=== PATIENT | female | born 1930 | race Caucasian/White ===

== ENCOUNTER → 2016-12-06 | Outpatient (CLI) | payer MEDICARE, BC | END | disposition home or self-care (01) | LOC: HKI 10:59 | PROVIDERS: ATTEND Orthopaedic Surgery | DX: Z01.818 Encounter for other preprocedural examination (principal); M25.552 Pain in left hip; M16.12 Unilateral primary osteoarthritis, left hip; Z96.641 Presence of right artificial hip joint | CPT/HCPCS: G0463 ==

== ENCOUNTER 2016-12-21 05:14 | Inpatient (IN) | payer MEDICARE, BC ==
[2016-12-20 09:22] VITALS: BMI 22.0
[~2016-12-21] VITALS: Ht 165.1 cm; Wt 60.3 kg
[2016-12-21] VITALS (29 sets, daily range): BP systolic 107–168; BP diastolic 59–91; PULSE 59–76; RESP 11–20; Ht 165.1 cm; Wt 60.3 kg
[2016-12-21] MEDS: PAIN COCKTAIL-CEFUROXIME IRR SCH ×14 (05:00→09:20)
[~2016-12-21 05:14] MED LIST: BUPIVACAINE LIPOSOME/PF 266 MG/20 ML VIAL INFIL SCH; CEFAZOLIN 2GM/50 ML (PMX) 50 ML X1 BEFORE INCISION IVPB ONE; CELECOXIB 400 MG PO X1 DOSE PO ONE; EXPAREL NOTE (BUPIVICAINE LIPOSOMAL) XX SCH; LACTATED RINGER'S 1,000 ML IV SCH; ON CALL TO OR IV ONE; SOD CHLORIDE 0.9% IV ONE; SOD CHLORIDE 0.9% IVPB SCH; TRANEXAMIC ACID IV ONE; TRANEXAMIC ACID IVPB SCH; oxyCODONE (CR) 10 MG TAB [oxyCONTIN] X1 DOSE PO ONE; traMADOL 50 MG TAB X 1 DOSE PO ONE
[2016-12-21] MEDS ORDERED: PREGABALIN 300 MG PO X1 PO ONE (06:01)
[2016-12-21] MEDS ORDERED: PROPOFOL 20 ML ONE (06:25)
[2016-12-21] MEDS ORDERED: MIDAZOLAM 1 MG/ML 2 ML INJ ONE (06:25)
[2016-12-21] MEDS ORDERED: GLYCOPYRROLATE 1 MG INJ ONE (06:25)
[2016-12-21] MEDS ORDERED: NEOSTIGMINE 3 MG/3 ML SYRINGE ONE (06:25)
[2016-12-21] MEDS ORDERED: LIDOCAINE 2% (SDV) 5 ML INJ ONE (06:25)
[2016-12-21] MEDS ORDERED: FENTAnyl 50 MCG/ML VIAL ONE (06:25)
[2016-12-21] MEDS ORDERED: ROCURONIUM 50 MG INJ ONE (06:25)
[2016-12-21] MEDS ORDERED: SUCCINYLCHOLINE CHLORIDE 100 MG/5 ML SYG IV ONE (06:26)
[2016-12-21] MEDS ORDERED: DEXAMETHASONE 4 MG/ML 1 ML INJ ONE (06:26)
[2016-12-21] MEDS ORDERED: ONDANSETRON 4 MG INJ ONE (06:26)
[2016-12-21] MEDS ORDERED: HYDROmorphONE (0.2 MG/ML) 10ML SYG IV PRN ×3 (06:30)
[2016-12-21] MEDS ORDERED: morphine (1 MG/ML) 10ML SYRINGE IV PRN ×3 (06:30)
[2016-12-21] MEDS ORDERED: EPHEDrine SULFATE 50 MG/5 ML SYG IV PRN (06:30)
[2016-12-21] MEDS ORDERED: hydrALAzine 20 MG INJ IV PRN (06:30)
[2016-12-21] MEDS ORDERED: ATROPINE 1 MG/10 ML SYRINGE IV PRN (06:30)
[2016-12-21] MEDS ORDERED: MIDAZOLAM 1 MG/ML 2 ML INJ IV PRN (06:30)
[2016-12-21] MEDS ORDERED: OXYCODONE/ACETAMINOPHEN (5/325) TAB PO PRN ×2 (06:30)
[2016-12-21] MEDS ORDERED: DIPHENHYDRAMINE 50 MG INJ IV PRN (06:30)
[2016-12-21] MEDS ORDERED: FENTAnyl 50 MCG/ML VIAL IV PRN ×2 (06:30)
[2016-12-21] MEDS ORDERED: MEPERIDINE 25 MG INJ IV PRN (06:30)
[2016-12-21] MEDS ORDERED: LABETALOL HCL 20MG INJ IV PRN (06:30)
[2016-12-21] MEDS ORDERED: ONDANSETRON 4 MG INJ IV PRN ×2 (06:30→14:30)
[2016-12-21] MEDS ORDERED: MULT-761 PO (06:49)
[2016-12-21] MEDS ORDERED: CALC400T6 PO (06:49)
[2016-12-21] MEDS ORDERED: CHOL100012 PO (06:49)
[2016-12-21] MEDS ORDERED: ESTR0.753 PO (06:49)
[2016-12-21] MEDS ORDERED: CYAN250013 PO (06:49)
[2016-12-21] MEDS ORDERED: AZOP1OP10 BOTH EYES (06:49)
[2016-12-21] MEDS ORDERED: TML25OP5 BOTH EYES (06:49)
[2016-12-21] MEDS ORDERED: VIT500LI PO (06:49)
[2016-12-21] MEDS ORDERED: VIT1CAPS42 PO (06:49)
[2016-12-21] MEDS ORDERED: VANCOMYCIN 1 GM INJ ONE (06:57)
[2016-12-21] MEDS ORDERED: SODIUM CL BACTERIOSTATIC 30 ML INJ ONE (06:57)
[2016-12-21] MEDS ORDERED: POLYMYXIN B 500000 UNIT INJ ONE (06:57)
--- NOTE | 2016-12-21 07:16 | HPN ---
Date/Time of Note Date/Time of Note DATE: 12/21/16 TIME: 07:15 Interval H&P Admission Note Pt. seen H&P reviewed: No system changes No changes from H&P by Dr. Gurpreet Payan dated 12/17/16 JHONATAN PATRICK MD Dec 21, 2016 07:16
[2016-12-21] MEDS ORDERED: BACITRACIN 50000 UNITS INJ IRR ONE (08:27)
[2016-12-21] MEDS ORDERED: EPHEDrine SULFATE 50 MG/5 ML SYG ONE (09:33)
--- NOTE | 2016-12-21 10:11 | OPPN ---
Date/Time of Note Date/Time of Note DATE: 12/21/16 TIME: 10:09 Operative/Procedure Note Dictation # [id number] Pre-Operative Diagnosis Left Hip OA Post-Operative Diagnosis Same Procedure Left Anterior ALISSON Surgeon: JHONATAN PATRICK MD Bill Poster Installer: FIONA WILCOX PA-C Anesthesiologist: DANIEL ELLIOTT MD Findings Severe OA Blood Usage/Administration None Implants/Grafts Depuy ALISSON Estimated blood loss: 250 - 300 ml's Drains Hemovac x 1 Specimens Femoral Head Complications: None Anesthesia type: spinal JHONATAN PATRICK MD Dec 21, 2016 10:11
[2016-12-21] MEDS ORDERED: ASPIRIN (EC) 325 MG TAB PO ONE (10:30)
[2016-12-21] MEDS ORDERED: CEFAZOLIN 2 GM/50 ML (PMX) 50 ML IVPB SCH (10:30)
[2016-12-21] MEDS ORDERED: NACL 0.9% 3 ML SYG IV SCH (10:30)
[2016-12-21] MEDS ORDERED: NA PHOSPHATE/BIPHOS 133 ML ENEMA PR PRN (10:30)
[2016-12-21] MEDS ORDERED: BISACODYL 10 MG SUPP PR PRN (10:30)
[2016-12-21] MEDS ORDERED: MAGNESIUM HYDROXIDE 30ML CUP PO PRN (10:30)
--- NOTE | 2016-12-21 10:47 | RADRPT ---
PROCEDURE: Pelvis x-ray CLINICAL INDICATION: Post op in PACU TECHNIQUE: Single AP view of the pelvis performed. COMPARISON: None FINDINGS: Total left hip prosthesis in place with anatomic articulation of the femoral and acetabular componen ts. No evidence of loosening or fracture. Intact right hip prosthesis with no evidence of fracture or hardware failure. Visualized pelvis is intact. IMPRESSION: Intact left total hip prosthesis with anatomic alignment. Stable right hip prosthesis. No hardware failure. RPTAT:AAJJ Physician Jenni Date Time Electronically viewed and signed by Physician Jenni on 12/21/2016 10:47 DONNA/
[2016-12-21 10:49] LABS: HEMATOCRIT 35.3 % (37.0-47.0); HEMOGLOBIN 11.8 g/dl (12.0-16.0)
--- NOTE | 2016-12-21 10:49 | RADRPT ---
PROCEDURE: XR Left Hip. CLINICAL INDICATION: Post op in PACU TECHNIQUE: Single AP portable view of the left hip status post placement. COMPARISON: None. FINDINGS: Intact total hip prosthesis with anatomic alignment of the femoral S10 components. No evidence of l oosening, fracture or hardware failure. Surgical drain in place. Atherosclerotic calcification of the left iliac and femoral artery. IMPRESSION: Intact total left total hip prosthesis. No fracture or evidence of hardware failure. RPTAT:AAJJ Bridget Alvarez Physician Date Time Electronically viewed and signed by Physician Jenni on 12/21/2016 10:49 DONNA/
--- NOTE | 2016-12-21 10:51 | RADRPT ---
PROCEDURE: Fluoroscopy. CLINICAL INDICATION: Intraoperative fluoroscopic guidance. TECHNIQUE: Fluoroscopic guidance provided for intraoperative procedure. Left total hip prosthesis. COMPARISON: 12/11/2016 CT abdomen. FINDINGS: 0.6 minutes fluoroscopy time was used. 14 intraoperative spot radiographs obtained. Total hip prost hesis placement. IMPRESSION: Fluoroscopic guidance provided for intraoperative procedure. RPTAT:AAJJ Bridget Alvarez Physician Date Time Electronically viewed and signed by Physician Jenni on 12/21/2016 10:50 DONNA/
[2016-12-21 10:54] LABS: POTASSIUM 4.6 mmol/L (3.5-5.1)
[2016-12-21 10:56] LABS: CALCIUM 8.5 mg/dl (8.4-10.2); CREATININE 0.78 mg/dl (0.44-1.00)
--- NOTE | 2016-12-21 11:20 | PN ---
Date/Time of Note Date/Time of Note DATE: 12/21/16 TIME: 11:18 Assessment/Plan Lines/Catheters IV Catheter Type (from Nrsg): Peripheral IV Assessment/Plan Assessment/Plan Stable in PACU, s/p left anterior ALISSON -cont abx -pain meds -ASA/SCDs -OOB with PT -check AM labs -monitor drain -d/c gilbert in AM XR of the left hip shows good alignment with no evidence of dislocation Subjective 24 Hr Interval Summary Stable in PACU. Moving all extremities. Denies pain. Still lethargic from anesthesia. Exam/Review of Systems Vital Signs Vitals Vital Signs Date Time Temp Pulse Resp B/P Pulse Ox O2 Delivery O2 Flow Rate FiO2 12/21/16 11:00 62 14 147/75 97 Nasal Cannula 12/21/16 10:35 3.0 12/21/16 10:17 99.9 Exam Free Text/Dictation Dressing dry Incision clean, dry, and intact without redness or drainage 5/5 Quadriceps, Tibialis Anterior, EHL, Gastroc, Soleus, Peroneals Normal sensation Palpable DT/PT, CR <2 sec No distal edema Results Result Diagram: 12/21/16 1035 12/21/16 1035 FIONA WILCOX PA-C Dec 21, 2016 11:20
[2016-12-21 11:30] LABS: ADD UMIC YES; URINE BILIRUBIN (Dip) NEGATIVE (NEGATIVE); URINE BLOOD (Dip) 1+ (NEGATIVE); URINE COLOR LT. YELLOW (YELLOW); URINE GLUCOSE (Dip) NEGATIVE (NEGATIVE); URINE KETONES (Dip) NEGATIVE (NEGATIVE); URINE LEUKOCYTE ESTERASE (Dip) NEGATIVE (NEGATIVE); URINE NITRITE (Dip) NEGATIVE (NEGATIVE); URINE TOTAL PROTEIN (Dip) NEGATIVE (NEGATIVE); URINE UROBILINOGEN (Dip) 0.2 E.U./dL (0.1-1.0)
[2016-12-21] MEDS: TIMOLOL 0.25% 5 ML OPH BOTH EYES SCH (11:30)
[2016-12-21] MEDS: ASPIRIN (EC) 325 MG TAB PO SCH ×2 (11:34→21:18)
--- NOTE | 2016-12-21 11:44 | RADRPT ---
PROCEDURE: XR Pelvis. CLINICAL INDICATION: Hip pain TECHNIQUE: Single AP view performed. COMPARISON: 04/23/2015 FINDINGS: There is a postoperative left total hip replacement. There is no evidence of loosening of the prosth esis. No fracture is identified. There are postoperative soft tissue changes. A drain is in place. Previous right total hip replacement. No loosening or fracture identified. There is normal osseous mineralization. No fractures or osseous lesions are identified. The soft t issues are unremarkable. IMPRESSION: Postoperative left total hip replacement. Postoperative soft tissue changes Previous unremarkable right total hip replacement. RPTAT: HGDB .Butch Cook MD, Date Time Electronically viewed and signed by .Butch Cook MD, on 12/21/2016 11:43 .B/
[2016-12-21 11:45] LABS: BACTERIA,URINE RARE; URINE RBCS 0-2 /HPF (0)
--- NOTE | 2016-12-21 11:54 | OPR ---
DATE OF OPERATION: 12/21/2016 PREOPERATIVE DIAGNOSIS: Left hip osteoarthritis. POSTOPERATIVE DIAGNOSIS: Left hip osteoarthritis. OPERATION PERFORMED: Left anterior total hip arthroplasty. SURGEON: Jhonatan Schroeder MD MANAGER FRENCH: OLIVA Carmona COMPONENTS USED: DePuy size 50 mm Gription Lequire cup, 50/32 neutral AltrX polyethylene liner, si ze 4 high-offset Actis stem, 32+5 ceramic head. ANESTHESIA: Spinal plus general endotracheal intubation plus periarticular injection. ANESTHESIOLOGIST: Dr. Ovalles ESTIMATED BLOOD LOSS: 300 mL. INTRAVENOUS FLUIDS: Crystalloid 1 L. SPECIMENS: Femoral head. DRAINS: Hemovac x1. COMPLICATIONS: None. DISPOSITION: The patient tolerated the procedure well and was taken to the recovery room in stable c ondition. INDICATIONS: The patient is an 86-year-old woman who has had progressively worsening pain in the lef t hip with radiographic evidence of severe osteoarthritis. She has failed nonsurgical means of efren tment to control her pain including activity modifications, pain medications, and ambulatory assist devices. Despite these measures, she has had worsening pain, and I felt she would benefit from a to jazzy hip arthroplasty through an anterior approach. The risks, benefits, and alternatives of the procedure were explained in detail to the patient. I ex plained the risks of the surgery to include, but not be limited to: bleeding and possible need for b lood transfusion; infection; pain; stiffness; neurovascular injury with possible numbness, weakness, and/or paralysis anywhere from the hip down to the toes; fracture; instability; dislocation; leg le ngth inequality; wear and/or loosening of the prosthesis and possible need for future revision; bloo d clots; pulmonary embolism; and anesthetic complications such as heart attack, stroke, GI bleed, pn eumonia, and/or . Ample time was allowed for the patient to ask questions, all of which were ad dressed and answered. The patient understood the risks involved and wished to proceed. Informed cons ent was signed prior to the procedure. PROCEDURE: The patient's left hip was initialed with a marking pen in the preoperative area to ident elke the correct operative site. The patient was brought to the operating room and transferred from [facility] to the [facility] where a spinal anesthetic was administered. The patient was the n anesthetized and intubated. A Iniguez catheter was placed. Both feet were placed into well-padded laz ots which were then placed into the leg holders of the traction booms. A timeout was performed to co nfirm that the left side was the correct operative site. The patient was given 2 g of intravenous An cef within one hour prior to the procedure. The operative hip was prepped and draped in the usual st erile fashion. A 10 cm oblique incision was made over the anterior aspect of the hip and carried down through subcu taneous tissue and fat with sharp dissection. The tensor fascia joshua was incised along the length of the wound. The tensor fascia muscle was retracted laterally and the sartorius medially. The anterio r circumflex vessels were identified and tied off with 2-0 silk suture and coagulated with the [employer] [employer] [facility] cath lab. The rectus femoris was elevated off the anterior capsule and an anterior capsulec bandar performed. A femoral neck osteotomy was made and the head removed from the acetabulum. The acet abulum was denuded of cartilage circumferentially, as was the femoral head. Retractors were placed a round the acetabulum. The remnants of the labrum and ligamentum teres were excised. I reamed the naheed tabulum to the medial wall and then went into an anatomic position and increased the reamer size in 2 mm increments until I got a good bite and was down to bleeding subchondral bone. The Lequire cup was opened and impacted into the acetabulum and sat flush circumferentially, gettin g a good bite. C-arm imaging showed it had about 40 to 45 degrees of abduction and 20 degrees of ant eversion. The real liner was opened and impacted into the acetabulum and sat flush circumferentiall y. Attention was turned towards the femur. The operative leg was carefully lowered to the floor with the leg adducted. The foot was then jet worker ally rotated to approximately 110 degrees. A posteromedial release was performed to optimize exposur e. The femoral hook was placed underneath the proximal femur and the hydraulic lift was then used to elevate the femur up out of the wound. The aliyah cutter osteotome was used to remove the remaining overhanging greater trochanter. The femur was then broached, going up in one size increments until it sat flush with the neck cut and a stable fit was achieved. The trial neck and head were assembled and reduced into the acetabulum. Fluoroscopic imaging showed the components to be in good position and the leg lengths and offsets to be equal. At this point, the trial was dislocated and the trial broach removed. The canal was irrigated and dr storm. The real stem was opened and impacted into the femur. The trunnion was irrigated and dried, and the real femoral head was impacted onto the trunnion, and reduced into the acetabulum. The soft tissues were infiltrated with a mixture of 150 mg of 0.5% Bupivacaine, 8 mg of Duramorph, 3 00 mcg of epinephrine, 30 mg of Toradol, 100 mcg of clonidine, 750 mg of cefuroxime and 86 mL of nor mal saline, followed by an injection of 266 mg of liposomal Bupivacaine. At this point the hip was i rrigated with a mixture of betadine/saline and then antibiotic saline with pulsatile lavage. A Hemov ac drain was placed in the deep portion of the wound and brought out the anterolateral thigh. There was good hemostasis. The tensor fascia joshua was repaired with a running #1 Vicryl. The deep fat laye r was irrigated and closed with 2-0 Stratafix and the subcutaneous layer closed with 3-0 Stratafix a nd the skin was sealed with Prineo Dermabond. The drain was secured with 3-0 nylon. The sponge and needle counts were correct at the end of the case. The wound was covered with an occl usive dressing. The patient was awakened, extubated, and taken to the recovery room in stable condit ion. Dictated By: JHONATAN KNOWLES/SHANNAN Conf#: [id number] DID#: [id number]
--- NOTE | 2016-12-21 12:39 | CONS ---
DATE OF ADMISSION: 12/21/2016 DATE OF CONSULTATION: 12/21/2016 POSTOPERATIVE MEDICAL CONSULTATIVE NOTE REFERRING PHYSICIAN: Mike Schroeder MD Thank you very much for allowing me to evaluate this 86-year-old female who just underwent left tota l hip arthroplasty. HISTORICAL EVENTS: As you well know, this patient has had progressive disabling pain involving the left hip, and for this elected to proceed with surgery. In recovery, she is comfortable without cou gh, wheezing, shortness of breath, nausea, vomiting, abdominal, or chest pain. PAST MEDICAL HISTORY: Includes: 1. Osteopenia 2. Vitamin D deficiency. 3. Glaucoma. 4. Rosacea. 5. Macular degeneration. 6. Complete hysterectomy. 7. Right total hip arthroplasty. 8. Left wrist fracture, 2003. No history of lung disease or heart disease. MEDICATIONS: 1. Azopt eye drops 1 in both eyes twice a day. 2. Vitamin D3 1000 per day. 3. Tums 2 per day. 4. Doxycycline 20 mg per day. 5. Estropipate 0.75 mg per day. 6. Timolol 0.5% one drop in both eyes daily. 7. Vitamin B12 1000 mcg per day. SOCIAL HISTORY: , retired. Never smoked. FAMILY HISTORY: Positive for breast cancer and COPD. PHYSICAL EXAMINATION: GENERAL: Comfortable-appearing female in no acute distress. VITAL SIGNS: BP 122/80, pulse 70, respirations 20, she was afebrile. EYES: Extraocular muscles were full. NOSE, MOUTH, AND THROAT: Normal. NECK: Supple. There was no jugular venous distention, thyroid enlargement, or adenopathy. LUNGS: Clear. HEART: Rhythm regular, no murmur. No third or fourth sound. ABDOMEN: Nontender. Liver and spleen were not palpable. No masses or tenderness were noted. EXTREMITIES: No edema. Calves nontender. IMPRESSION AND PLAN: 1. Stable postop left total hip arthroplasty. Will follow her daily with signs and symptoms of thr omboembolic disease despite an appropriate DVT prophylaxis. 2. Vitamin D deficiency and related osteopenia/porosis, to continue the supplement. Dictated By: GUDELIA LOPEZ MD MR/NTS Conf#: [id number] DID#: [id number]
[2016-12-21] MEDS: ACETAMINOPHEN 1000MG/100ML IV 100 ML IVPB SCH ×2 (13:20→19:30)
[2016-12-21] MEDS: LACTATED RINGER'S 1,000 ML IV SCH ×2 (13:21→18:01)
[2016-12-21] MEDS: traMADol 50 MG TAB PO SCH ×2 (13:25→18:12)
[2016-12-21] MEDS ORDERED: HYDROmorphONE 1 MG/ML SYG IV PRN (14:30)
[2016-12-21] MEDS ORDERED: DIPHENHYDRAMINE 25 MG CAP PO PRN (14:30)
[2016-12-21] MEDS ORDERED: oxyCODONE 5 MG TAB PO PRN ×2 (14:30)
[2016-12-21] MEDS: PANTOPRAZOLE (EC) 40 MG TAB PO SCH (18:12)
[2016-12-21] MEDS: CEFAZOLIN 2 GM/50 ML (PMX) 50 ML IVPB SCH (21:18)
[2016-12-21] MEDS: DOCUSATE SODIUM 100 MG CAP PO SCH (21:18)
[2016-12-21] MEDS: PREGABALIN 25 MG CAP PO SCH (21:18)
[2016-12-21] MEDS: BRINZOLAMIDE 1% 10ML OPH BOTH EYES SCH (21:19)
[2016-12-22 00:06] VITALS: BP 123/71; RESP 18
[2016-12-22] MEDS: ACETAMINOPHEN 1000MG/100ML IV 100 ML IVPB SCH ×2 (00:28→05:33)
[2016-12-22] MEDS: LACTATED RINGER'S 1,000 ML IV SCH ×3 (00:28→17:17)
[2016-12-22] MEDS: traMADol 50 MG TAB PO SCH ×4 (00:29→17:23)
[2016-12-22] MEDS: CEFAZOLIN 2 GM/50 ML (PMX) 50 ML IVPB SCH ×2 (03:48→13:31)
[2016-12-22 05:23] VITALS: BP 122/69; PULSE 74; RESP 18
[2016-12-22] MEDS: PANTOPRAZOLE (EC) 40 MG TAB PO SCH ×2 (05:33→17:23)
[2016-12-22 05:46] LABS: HEMATOCRIT 32.5 % (37.0-47.0); HEMOGLOBIN 10.9 g/dl (12.0-16.0)
[2016-12-22 06:08] LABS: POTASSIUM 4.6 mmol/L (3.5-5.1)
[2016-12-22 06:11] LABS: CREATININE 0.94 mg/dl (0.44-1.00)
[2016-12-22 07:00] VITALS: BP 117/56; RESP 20
--- NOTE | 2016-12-22 07:45 | PDOCDIS ---
Discharge Instructions DIAGNOSIS Discharge Diagnosis: s/p left anterior ALISSON CONDITION Patient Condition: Good HOME CARE INSTRUCTIONS: Diet Instructions: Regular ACTIVITY: Activity Restrictions: Slowly Increase Activity Rest between Activity Avoid heavy lifting Do not operate Machinery Do not operate Power Tool Avoid Heavy Housework Keep Limb Elevated FOLLOW UP/APPOINTMENTS Appointments follow up with Dr. Schroeder in the office on 01/01/17 OTHER ORDERS: Other Orders: S/P Anterior ALISSON Physical Therapy: Three times per week at home x 2 weeks Daily in Rehab/SNF (if indicated) WB STATUS: WBAT Strengthening exercises for both upper and un-operated lower extremities. 1. Gait training with front wheeled walker 2. Wide base gait, no pivot turns. 3. Abductor strengthening. 4. Quadriceps and hamstring strengthening. 5. May switch to cane in contra lateral hand 6 weeks after surgery. 6. Physical Therapy can open case if nursing is not available. 7. Ice Packs while at rest to surgical wound for 20 minutes, 3 times/day. 8. Patient requires mobile SCDs to reduce risk of developing DVT following ALISSON. Patient will use the mobile SCDs for 30 days postoperatively. Hip Precautions: No posterior hip precautions. Bathing assistance by home health aide twice weekly if Medicare patient. Occupational Therapy: Evaluation for assistive devices and ADL training. Wound Care: Keep incision dry & covered with Tegaderm until first visit with Dr. Schroeder Anticoagulation Orders: Enteric Coated Aspirin 325 mg po bid x 6 weeks from date of surgery Follow-up:Call for an appointment with Dr. Schroeder in 1 week after discharged from hospital at DME Orders: MANAN, 3-in-1 Commode, Mobile SCDs FIONA WILCOX PA-C Dec 22, 2016 07:45
[2016-12-22] MEDS ORDERED: ASPI325T32 PO (07:46)
[2016-12-22] MEDS ORDERED: PANT40TA4 PO (07:46)
[2016-12-22] MEDS ORDERED: TRAM50TA2 PO (07:46)
[2016-12-22] MEDS ORDERED: HYDR-906 PO (07:46)
[2016-12-22 08:06] LABS: ADD UMIC YES; URINE BILIRUBIN (Dip) NEGATIVE (NEGATIVE); URINE BLOOD (Dip) 2+ (NEGATIVE); URINE COLOR LT. YELLOW (YELLOW); URINE GLUCOSE (Dip) NEGATIVE (NEGATIVE); URINE KETONES (Dip) NEGATIVE (NEGATIVE); URINE LEUKOCYTE ESTERASE (Dip) NEGATIVE (NEGATIVE); URINE NITRITE (Dip) NEGATIVE (NEGATIVE); URINE TOTAL PROTEIN (Dip) NEGATIVE (NEGATIVE); URINE UROBILINOGEN (Dip) 0.2 E.U./dL (0.1-1.0)
--- NOTE | 2016-12-22 08:50 | CONS ---
Date/Time of Note Date/Time of Note DATE: 12/22/16 TIME: 08:49 Assessment/Plan Assessment/Plan Additional Assessment/Plan 1. Doing very well post op left hip replacement 2. Labs rev Consultation Date/Type/Reason Admit Date/Time Dec 21, 2016 at 05:14 Initial Consult Date Detailed Summary ENT: other (mouth is dry ) Respiratory: No cough, No shortness of breath Cardiovascular: No chest pain, No lightheadedness Gastrointestinal: no complaints Genitourinary: other (gilbert in place) Musculoskeletal: bone/joint pain (mild left hip pain) Exam/Review of Systems Vital Signs Vitals Vital Signs Date Time Temp Pulse Resp B/P Pulse Ox O2 Delivery O2 Flow Rate FiO2 12/22/16 07:00 98.7 97 20 117/56 98 12/22/16 05:23 Nasal Cannula 12/21/16 21:00 2.0 Intake and Output 12/21/16 12/21/16 12/22/16 15:00 23:00 07:00 Intake Total 2046 ml 530 ml 2100 ml Output Total 600 ml 40 ml 980 ml Balance 1446 ml 490 ml 1120 ml Exam Neck: No jvd Respiratory: clear to auscultation Cardiovascular: regular rate and rhythm Gastrointestinal: soft Extremities: No edema (and no calf tend bilat) Results Result Diagram: 12/22/16 0415 12/22/16 0425 Results 24 hrs Laboratory Tests Test 12/21/16 10:12 12/21/16 10:35 12/22/16 04:00 12/22/16 04:15 Urine Bacteria RARE Urine Bilirubin NEGATIVE NEGATIVE Urine Clarity CLEAR CLEAR Urine Color LT. YELLOW LT. YELLOW Urine Epithelial Cells RARE Urine Glucose NEGATIVE NEGATIVE Urine Hemoglobin 1+ H 2+ H Urine Ketones NEGATIVE NEGATIVE Urine Leukocyte Esterase NEGATIVE NEGATIVE Urine Microscopic RBC 0-2 Pending Urine Microscopic WBC 0-2 Pending Urine Nitrite NEGATIVE NEGATIVE Urine Specific Reading 1.010 1.020 Urine Total Protein NEGATIVE NEGATIVE Urine Urobilinogen 0.2 E.U./dL 0.2 E.U./dL Urine pH 6.0 5.5 Anion Gap 13 Blood Urea Nitrogen 17 Calcium Level 8.5 Carbon Dioxide Level 26 Chloride Level 109 Creatinine 0.78 Glucose Level 115 Hematocrit 35.3 L 32.5 L Hemoglobin 11.8 L 10.9 L Potassium Level 4.6 Sodium Level 143 Test 12/22/16 04:25 Anion Gap 13 Blood Urea Nitrogen 18 Calcium Level 8.0 L Carbon Dioxide Level 27 Chloride Level 103 Creatinine 0.94 Glucose Level 92 Potassium Level 4.6 Sodium Level 138 Medications Medications Current Medications Miscellaneous Information 1 ea 1 ea NOTE XX ; Start 12/21/16 at 05:00; Stop at 04:59 Lactated Ringer's (Lr) 1,000 ml @ 125 mls/hr Q8H IV Last administered on 00:28; Admin Dose 125 MLS/HR; Start 12/21/16 at 10:01 Celecoxib 200 mg 200 mg DAILY PO ; Start 12/22/16 at 09:00 Acetaminophen (Ofirmev 1000mg/ 100ml Iv) 100 ml @ 400 mls/hr Q6 IVPB Last administered on 12/22/16 05:33; Admin Dose 400 MLS/HR; Start 12/21/16 at 12:00 ; Stop 12/22/16 at 11:59 Tramadol HCl (Ultram) 50 mg Q6 PO Last administered on 12/22/16 05:33; Admin Dose 50 MG; Start 12/21/16 at 12:00; Stop 12/24/16 at 11:59 Oxycodone HCl (Roxicodone) 5 mg Q4H PRN PO PAIN LEVEL 1-3; Start 12/21/16 at 14 :30 Oxycodone HCl (Roxicodone) 10 mg Q4H PRN PO PAIN LEVEL 4-7; Start 12/21/16 at 14:30 Hydromorphone HCl (Dilaudid) 1 mg Q3H PRN IV PAIN LEVEL 8-10; Start 12/21/16 at 14:30 Ondansetron HCl (Zofran Inj) 4 mg Q6H PRN IV NAUSEA AND/OR VOMITING; Start at 14:30 Bisacodyl (Dulcolax Supp) 10 mg Q12H PRN SD CONSTIPATION; Start 12/21/16 at 10: 30 Magnesium Hydroxide (Milk Of Mag) 30 ml BID PRN PO CONSTIPATION; Start at 10:30 Sodium Biphosphate/ Sodium Phosphate (Fleet Enema) 133 ml DAILY PRN SD CONSTIPATION; Start 12/21/16 at 10:30 Docusate Sodium (Colace) 100 mg BID PO Last administered on 12/21/16 21:18; Admin Dose 100 MG; Start 12/21/16 at 21:00 Diphenhydramine HCl (Benadryl) 25 mg Q6H PRN PO PRURITUS; Start 12/21/16 at 14: 30 Aspirin (Ecotrin) 325 mg BID PO Last administered on 12/21/16 21:18; Admin Dose 325 MG; Start 12/21/16 at 10:10 Pregabalin (Lyrica) 50 mg BID PO Last administered on 12/21/16 21:18; Admin Dose 50 MG; Start 12/21/16 at 21:00 Pantoprazole (Protonix Tab) 40 mg BID@06,18 PO Last administered on 12/22/16 05:33; Admin Dose 40 MG; Start 12/21/16 at 18:00 Brinzolamide (Azopt) 1 drop BID BOTH EYES Last administered on 12/21/16 21:19 ; Admin Dose 1 DROP; Start 12/21/16 at 21:00 Estropipate (Ogen) 0.75 mg DAILY PO ; Start 12/22/16 at 09:00 Timolol Maleate (Timoptic 0.25%) 1 drop DAILY BOTH EYES ; Start 12/21/16 at 11: 30 Cholecalciferol (Vitamin D) 1,000 unit DAILY PO ; Start 12/22/16 at 09:00 Cyanocobalamin (Vitamin B12) 1,000 mcg DAILY PO ; Start 12/22/16 at 09:00 Cyanocobalamin 200 mcg 200 mcg DAILY PO ; Start 12/22/16 at 09:00 Cefazolin Sodium/ Dextrose (Ancef 2 Gm/50 ml (Pmx)) 50 ml @ 100 mls/hr Q8H IVPB Last administered on 12/22/16 03:48; Admin Dose 100 MLS/HR; Start at 20:00; Stop 12/22/16 at 12:29 GUDELIA LOPEZ MD Dec 22, 2016 08:50
[2016-12-22] MEDS ORDERED: ESTROPIPATE 0.75 MG TAB PO SCH ×2 (09:00→21:00)
[2016-12-22] MEDS: ASPIRIN (EC) 325 MG TAB PO SCH ×2 (09:21→21:11)
[2016-12-22] MEDS: CELECOXIB 200 MG CAP PO SCH (09:21)
[2016-12-22] MEDS: CYANOCOBALAMIN 100 MCG TAB PO SCH (09:21)
[2016-12-22] MEDS: CYANOCOBALAMIN 500 MCG TAB PO SCH (09:22)
[2016-12-22] MEDS: TIMOLOL 0.25% 5 ML OPH BOTH EYES SCH (09:22)
[2016-12-22] MEDS: DOCUSATE SODIUM 100 MG CAP PO SCH ×2 (09:22→21:11)
[2016-12-22] MEDS: CHOLECALCIFEROL 1,000 UNIT TAB PO SCH (09:22)
--- NOTE | 2016-12-22 09:23 | PN ---
Date/Time of Note Date/Time of Note DATE: 12/22/16 TIME: 09:21 Assessment/Plan Lines/Catheters IV Catheter Type (from Nrsg): Peripheral IV Iniguez in Place (from Nrsg): Yes Assessment/Plan Assessment/Plan Stable POD #1 s/p left anterior ALISSON -d/c abx -pain meds -ASA/SCDs -drain removed, dressing changed -OOB with PT -check AM labs -d/c planning. Patient would like to go home Subjective 24 Hr Interval Summary Doing well. No acute overnight events. Denies any pain. VSS, afebrile. Did not start PT. Exam/Review of Systems Vital Signs Vitals Vital Signs Date Time Temp Pulse Resp B/P Pulse Ox O2 Delivery O2 Flow Rate FiO2 12/22/16 07:00 98.7 97 20 117/56 98 12/22/16 05:23 Nasal Cannula 12/21/16 21:00 2.0 Intake and Output 12/21/16 12/21/16 12/22/16 14:59 22:59 06:59 Intake Total 2046 ml 530 ml 2100 ml Output Total 600 ml 40 ml 980 ml Balance 1446 ml 490 ml 1120 ml Exam Free Text/Dictation Hemovac: 120cc Dressing dry Incision clean, dry, and intact without redness or drainage 5/5 Quadriceps, Tibialis Anterior, EHL, Gastroc, Soleus, Peroneals Normal sensation Palpable DT/PT, CR <2 sec No distal edema Results Result Diagram: 12/22/16 0415 12/22/16 0425 FIONA WILCOX PA-C Dec 22, 2016 09:23
[2016-12-22] MEDS: BRINZOLAMIDE 1% 10ML OPH BOTH EYES SCH ×2 (09:25→21:12)
[2016-12-22] MEDS: PREGABALIN 25 MG CAP PO SCH ×2 (09:25→21:11)
[2016-12-22 09:47] LABS: BACTERIA,URINE RARE
[2016-12-22 12:35] VITALS: BP 110/59; RESP 20
[2016-12-22] MEDS: [UNRECOGNIZED DRUG - REMARK] XX SCH ×2 (13:00→21:00)
[2016-12-22 20:10] VITALS: BP 123/60; RESP 18
[2016-12-22] MEDS ORDERED: VITAMIN A & D 5 GM OINT PACKET TOP ONE (21:32)
[2016-12-23] MEDS: LACTATED RINGER'S 1,000 ML IV SCH ×4 (02:01→22:41)
[2016-12-23] MEDS: [UNRECOGNIZED DRUG - REMARK] XX SCH ×4 (05:00→22:42)
[2016-12-23] MEDS: traMADol 50 MG TAB PO SCH ×5 (06:00→22:41)
[2016-12-23 06:07] LABS: HEMATOCRIT 32.5 % (37.0-47.0); HEMOGLOBIN 11.3 g/dl (12.0-16.0)
[2016-12-23 06:23] LABS: POTASSIUM 4.3 mmol/L (3.5-5.1)
[2016-12-23 06:25] LABS: CREATININE 0.85 mg/dl (0.44-1.00)
[2016-12-23 06:26] LABS: CALCIUM 8.5 mg/dl (8.4-10.2)
[2016-12-23] MEDS: PANTOPRAZOLE (EC) 40 MG TAB PO SCH ×2 (06:54→17:43)
[2016-12-23 07:00] VITALS: BP 130/62; RESP 20
--- NOTE | 2016-12-23 07:49 | PN ---
Date/Time of Note Date/Time of Note DATE: 12/23/16 TIME: 07:47 Assessment/Plan Lines/Catheters IV Catheter Type (from Nrsg): Peripheral IV Iniguez in Place (from Nrsg): Yes Assessment/Plan Assessment/Plan POD # 2. Stable. -Encourage increased activity OOB with PT -Pain meds -May need additional straight cath -Start Vanco for trace redness -If doing better tomorrow and able to void, plan for d/c to home -ASA 325 mg po bid plus bilateral LE SCDs Subjective 24 Hr Interval Summary Doing reasonably well. Minimal pain. Had urinary retention last night and required straight cath (900 cc). Exam/Review of Systems Vital Signs Vitals Vital Signs Date Time Temp Pulse Resp B/P Pulse Ox O2 Delivery O2 Flow Rate FiO2 12/22/16 20:10 98.0 98 18 123/60 98 12/22/16 08:00 Nasal Cannula 2.0 Intake and Output 12/22/16 12/22/16 12/23/16 15:00 23:00 07:00 Intake Total 50 ml 2110 ml 300 ml Output Total 200 ml 1400 ml Balance 50 ml 1910 ml -1100 ml Exam Free Text/Dictation Dressing dry Incision clean, dry, and intact with some surrounding bruising with trace redness, no drainage Thigh soft 5/5 Quadriceps, Tibialis Anterior, EHL, Gastroc Soleus, Peroneals Normal sensation Palpable DP/PT, CR < 2 Sec No distal edema Results Result Diagram: 12/23/16 0415 12/23/16 0415 JHONATAN PATRICK MD Dec 23, 2016 07:49
[2016-12-23] MEDS ORDERED: CEPH-443 PO (07:51)
[2016-12-23] MEDS ORDERED: VANCOMYCIN IV PER PHARMACY XX SCH (08:00)
[2016-12-23] MEDS ORDERED: BRIMONIDINE TOP SCH (09:00)
[2016-12-23] MEDS: BRINZOLAMIDE 1% 10ML OPH BOTH EYES SCH ×2 (09:29→21:06)
[2016-12-23] MEDS: DOCUSATE SODIUM 100 MG CAP PO SCH ×2 (09:29→21:04)
[2016-12-23] MEDS: TIMOLOL 0.25% 5 ML OPH BOTH EYES SCH (09:29)
[2016-12-23] MEDS: CHOLECALCIFEROL 1,000 UNIT TAB PO SCH (09:29)
[2016-12-23] MEDS: ASPIRIN (EC) 325 MG TAB PO SCH ×2 (09:30→21:05)
[2016-12-23] MEDS: CYANOCOBALAMIN 100 MCG TAB PO SCH (09:30)
[2016-12-23] MEDS: CYANOCOBALAMIN 500 MCG TAB PO SCH (09:30)
[2016-12-23] MEDS: CELECOXIB 200 MG CAP PO SCH (09:31)
[2016-12-23] MEDS: PREGABALIN 25 MG CAP PO SCH ×2 (09:54→21:04)
[2016-12-23] MEDS ORDERED: VANCOMYCIN 1.25 GM in SOD CHLORIDE 0.9% 250 ML IVPB SCH (10:00)
--- NOTE | 2016-12-23 12:46 | CONS ---
Date/Time of Note Date/Time of Note DATE: 12/23/16 TIME: 12:42 Assessment/Plan Assessment/Plan Additional Assessment/Plan Post op course c/b urinary retention and possible cellulitis. Afebrile, minimal pain. Able to urinate on own after straight cath last night - monitor for urinary retention with bladder scans today - Agree with IV Vanc to cover empirically for cellutis - check CBC w Diff tomorrow, monitor for fevers - can likely change Abx to PO Keflex for short course tomorrow - DVT ppx per ortho - anticipate d/c home tomorrow if stable. Consultation Date/Type/Reason Admit Date/Time Dec 21, 2016 at 05:14 Initial Consult Date Referring Provider: JHONATAN PATRICK MD 24 HR Interval Summary Free Text/Dictation Rough night due to urinary retention. Feeling much better after straight catheter. Able to urinate on her own this morning, feels like she is emptying completely now. Minimal pain. Exam/Review of Systems Vital Signs Vitals Vital Signs Date Time Temp Pulse Resp B/P Pulse Ox O2 Delivery O2 Flow Rate FiO2 12/23/16 07:00 98.9 83 20 130/62 98 12/22/16 08:00 Nasal Cannula 2.0 Intake and Output 12/22/16 12/22/16 12/23/16 15:00 23:00 07:00 Intake Total 50 ml 2110 ml 300 ml Output Total 200 ml 1400 ml Balance 50 ml 1910 ml -1100 ml Exam Respiratory: clear to auscultation, normal air movement Cardiovascular: nl pulses, regular rate and rhythm Gastrointestinal: nl liver, spleen, non-tender, soft Musculoskeletal: other (Mild erythema and warmth around incision site L hip; no fluctuance or tenderness) Results Result Diagram: 12/23/16 0415 12/23/16 0415 Results 24 hrs Laboratory Tests Test 12/23/16 04:15 Anion Gap 14 Blood Urea Nitrogen 19 Calcium Level 8.5 Carbon Dioxide Level 27 Chloride Level 102 Creatinine 0.85 Glucose Level 102 Hematocrit 32.5 L Hemoglobin 11.3 L Potassium Level 4.3 Sodium Level 139 Medications Medications Current Medications Miscellaneous Information 1 ea 1 ea NOTE XX ; Start 12/21/16 at 05:00; Stop at 04:59 Lactated Ringer's (Lr) 1,000 ml @ 125 mls/hr Q8H IV Last administered on 13:31; Admin Dose 125 MLS/HR; Start 12/21/16 at 10:01 Celecoxib (Celebrex) 200 mg DAILY PO Last administered on 12/23/16 09:31; Admin Dose 200 MG; Start 12/22/16 at 09:00 Tramadol HCl (Ultram) 50 mg Q6 PO Last administered on 12/22/16 17:23; Admin Dose 50 MG; Start 12/21/16 at 12:00; Stop 12/24/16 at 11:59 Oxycodone HCl (Roxicodone) 5 mg Q4H PRN PO PAIN LEVEL 1-3; Start 12/21/16 at 14 :30 Oxycodone HCl (Roxicodone) 10 mg Q4H PRN PO PAIN LEVEL 4-7; Start 12/21/16 at 14:30 Hydromorphone HCl (Dilaudid) 1 mg Q3H PRN IV PAIN LEVEL 8-10; Start 12/21/16 at 14:30 Ondansetron HCl (Zofran Inj) 4 mg Q6H PRN IV NAUSEA AND/OR VOMITING; Start at 14:30 Bisacodyl (Dulcolax Supp) 10 mg Q12H PRN [place] CONSTIPATION; Start 12/21/16 at 10: 30 Magnesium Hydroxide (Milk Of Mag) 30 ml BID PRN PO CONSTIPATION; Start at 10:30 Sodium Biphosphate/ Sodium Phosphate (Fleet Enema) 133 ml DAILY PRN [place] CONSTIPATION; Start 12/21/16 at 10:30 Docusate Sodium (Colace) 100 mg BID PO Last administered on 12/23/16 09:29; Admin Dose 100 MG; Start 12/21/16 at 21:00 Diphenhydramine HCl (Benadryl) 25 mg Q6H PRN PO PRURITUS; Start 12/21/16 at 14: 30 Aspirin (Ecotrin) 325 mg BID PO Last administered on 12/23/16 09:30; Admin Dose 325 MG; Start 12/21/16 at 10:10 Pregabalin (Lyrica) 50 mg BID PO Last administered on 12/23/16 09:54; Admin Dose 50 MG; Start 12/21/16 at 21:00 Pantoprazole (Protonix Tab) 40 mg BID@06,18 PO Last administered on 12/23/16 06:54; Admin Dose 40 MG; Start 12/21/16 at 18:00 Brinzolamide (Azopt) 1 drop BID BOTH EYES Last administered on 12/23/16 09:29 ; Admin Dose 1 DROP; Start 12/21/16 at 21:00 Timolol Maleate (Timoptic 0.25%) 1 drop DAILY BOTH EYES Last administered on 09:29; Admin Dose 1 DROP; Start 12/21/16 at 11:30 Cholecalciferol (Vitamin D) 1,000 unit DAILY PO Last administered on 12/23/16 09:29; Admin Dose 1,000 UNIT; Start 12/22/16 at 09:00 Cyanocobalamin (Vitamin B12) 1,000 mcg DAILY PO Last administered on 12/23/16 09:30; Admin Dose 1,000 MCG; Start 12/22/16 at 09:00 Cyanocobalamin (Vitamin B12) 200 mcg DAILY PO Last administered on 12/23/16 09 :30; Admin Dose 200 MCG; Start 12/22/16 at 09:00 Patient Own Medication DAILY TOP ; Start 12/23/16 at 09:00; Status UNV Miscellaneous Information (*Order Clarification Bulletin) PLEASE SEND PT'S OWN MEDS... Q8H XX ; Start 12/22/16 at 13:00 Estropipate 0.75 mg 0.75 mg QHS PO ; Start 12/23/16 at 21:00 Vancomycin HCl 1.25 gm/Sodium Chloride 250 ml @ 83.333 mls/ hr 10 IVPB Last administered on 12/23/16 09:58; Admin Dose 83.333 MLS/HR; Start 12/23/16 at 10: 00; Stop 12/23/16 at 16:00 Vancomycin HCl (Vancocin) 250 ml @ 125 mls/hr Q24H IVPB ; Start 12/24/16 at 10: 00 IRAIS GAUTAM MD Dec 23, 2016 12:46
[2016-12-23 21:00] VITALS: BP 130/66; RESP 20
[2016-12-23] MEDS ORDERED: ESTROPIPATE 0.75 MG TAB PO SCH (21:00)
[2016-12-24] MEDS: traMADol 50 MG TAB PO SCH (04:21)
[2016-12-24] MEDS: PANTOPRAZOLE (EC) 40 MG TAB PO SCH (06:15)
[2016-12-24 06:40] LABS: BASOPHILS % 0.1 % (0.0-2.0); EOSINOPHILS # 0.1 10^3/ul (0.0-0.5); EOSINOPHILS % 1.2 % (0.0-7.0); HEMATOCRIT 33.7 % (37.0-47.0); HEMOGLOBIN 11.5 g/dl (12.0-16.0); LYMPHOCYTES % 9.5 % (15.0-51.0); MEAN CORPUSCULAR HEMOGLOBIN 31.3 pg (29.0-33.0); MEAN CORPUSCULAR HGB CONC 34.1 g/dl (32.0-37.0); MEAN CORPUSCULAR VOLUME 91.8 fl (82.0-101.0); MEAN PLATELET VOLUME 8.8 fl (7.4-10.4); NEUTROPHIL # 8.6 10^3/ul (1.6-7.5); NEUTROPHILS % 80.2 % (39.0-77.0); PLATELET COUNT 247 10^3/UL (140-440); RED BLOOD COUNT 3.67 10^6/ul (4.20-5.40); RED CELL DISTRIBUTION WIDTH 14.1 % (11.5-14.5); UNCORRECTED WBC 10.8 10^3/ul (4.8-10.8); WHITE BLOOD COUNT 10.8 10^3/ul (4.8-10.8)
[2016-12-24 06:43] LABS: POTASSIUM 4.8 mmol/L (3.5-5.1)
[2016-12-24 06:44] LABS: CONDITION 1
[2016-12-24 06:46] LABS: CALCIUM 8.7 mg/dl (8.4-10.2); CREATININE 0.75 mg/dl (0.44-1.00)
--- NOTE | 2016-12-24 08:39 | PN ---
Date/Time of Note Date/Time of Note DATE: 12/24/16 TIME: 08:33 Assessment/Plan VTE Prophylaxis VTE Prophylaxis Intervention: ambulation, SCD's Lines/Catheters IV Catheter Type (from Nrsg): Saline Lock Iniguez in Place (from Nrsg): No Assessment/Plan Assessment/Plan -Dressing change performed today -Patient will be discharged today. Discharge orders will be placed. -DVT prophylaxis with aspirin/SCDs -Continue pain medication as needed -Patient will be discharged home with home health via [facility]. Patient will also be monitored under the care of her daughter. -Patient was provided with Tegaderm dressing yesterday. Tegaderm dressing not present in patient room today, patient is called patient daughter, who has confirmed a Tegaderm dressing w/ pad was brought home yesterday and she is an ample supply for the next 10 days. Instructions for proper application of Tegaderm dressing were reiterated with patient today in detail and she states understanding. -Initiate Keflex upon discharge per Dr. Schroeder instructions on prescription. -Patient is scheduled for follow-up in outpatient clinic with Dr. Schroeder in 10 days for removal of prineo but patient made aware that if she needs to be seen sooner given any complication, she was strongly advised to make earlier appointment. Subjective 24 Hr Interval Summary 86-year-old female postop day 3 status post left anterior total hip arthroplasty. Patient having pain complaints of around 3-4/10 on the pain scale with being seated while hip is flexed at around 90. Patient is out of bed walking with assistance using front wheeled walker. Patient is able to walk up and down hallways. Denies any calf pain, chest pain, shortness of breath/difficulty breathing. Overall patient is doing well and looking forward to going home today. Patient had ecchymosis surrounding wound site yesterday. IV Vanco was ordered by Dr. Segura. Patient was also given prescription of Keflex to initiate upon discharge for 7 days. Pain Control: mild Exam/Review of Systems Vital Signs Vitals Vital Signs Date Time Temp Pulse Resp B/P Pulse Ox O2 Delivery O2 Flow Rate FiO2 12/23/16 21:00 98.4 92 20 130/66 94 12/22/16 08:00 Nasal Cannula 2.0 Intake and Output 12/23/16 12/23/16 12/24/16 15:00 23:00 07:00 Intake Total 800 ml 950 ml Output Total 1500 ml 1150 ml Balance -700 ml -200 ml Exam Free Text/Dictation Dressing dry Incision clean, dry, and intact with some surrounding bruising with trace redness showing mild improvement after starting Vanco yesterday, no drainage Thigh soft 5/5 Quadriceps, Tibialis Anterior, EHL, Gastroc Soleus, Peroneals Normal sensation Palpable DP/PT, CR < 2 Sec No distal edema Results Result Diagram: 12/24/16 0530 12/24/16 0510 MEÑO SCHNEIDER PA-C Dec 24, 2016 08:39
[2016-12-24] MEDS ORDERED: VANCOMYCIN 1 GM in NS 250 ML IVPB SCH (10:00)
[2016-12-24] MEDS: LACTATED RINGER'S 1,000 ML IV SCH (10:01)
[2016-12-24] MEDS: ASPIRIN (EC) 325 MG TAB PO SCH (10:04)
[2016-12-24] MEDS: DOCUSATE SODIUM 100 MG CAP PO SCH (10:05)
[2016-12-24] MEDS: CYANOCOBALAMIN 100 MCG TAB PO SCH (10:05)
[2016-12-24] MEDS: CELECOXIB 200 MG CAP PO SCH (10:05)
[2016-12-24] MEDS: CHOLECALCIFEROL 1,000 UNIT TAB PO SCH (10:05)
[2016-12-24] MEDS: BRINZOLAMIDE 1% 10ML OPH BOTH EYES SCH (10:06)
[2016-12-24] MEDS: TIMOLOL 0.25% 5 ML OPH BOTH EYES SCH (10:06)
[2016-12-24] MEDS: CYANOCOBALAMIN 500 MCG TAB PO SCH (10:15)
[2016-12-24] MEDS: PREGABALIN 25 MG CAP PO SCH (10:15)
[2016-12-24] MEDS: [UNRECOGNIZED DRUG - REMARK] XX SCH (12:57)
--- NOTE | 2016-12-25 15:28 | DS ---
DATE OF ADMISSION: 12/21/2016 DATE OF DISCHARGE: 12/24/2016 CONDITION UPON DISCHARGE: Stable. ADMITTING DIAGNOSIS: Left hip osteoarthritis. DISCHARGE DIAGNOSIS: Status post left anterior total hip arthroplasty. PROCEDURE PERFORMED: Left anterior total hip arthroplasty. HOSPITAL COURSE: This is an 86-year-old female who presented to clinic initially complaining of left hip pain. She had previously undergone a right total hip arthroplasty and it was deemed that she would benefit from having left side replaced as well. On 12/21/2016, the patient was admitted and taken to the operating room where she underwent a left anterior total hip arthroplasty. There were no intraoperative complications. The patient tolerated the procedure well. She was taken to the recovery room in stable condition. Pain was well controlled with oral pain medication. She was started on aspirin and SCDs for DVT prophylaxis. She remained hemodynamically stable and neurovascularly intact throughout her hospital stay. She began physical therapy on postoperative day 1 and continued to make good progress throughout her hospital course. On postoperative day #3, she was deemed clinically stable for discharge. Prior to discharge, the incision was inspected and noted to be clean, dry and intact. Dressing changes were done prior to the patient going home. She did have some increased urinary retention which was resolved prior to the patient being discharged as well. LABORATORY ANALYSIS UPON DISCHARGE: Hemoglobin 11.5, hematocrit 33.7. Chemistry panel was within normal limits. DISCHARGE MEDICATIONS: 1. Nardin 5/325 mg 2. Tramadol 50 mg. 3. Aspirin 325 mg. 4. Protonix 40 mg. 5. Keflex 500 mg. Additionally, the patient is to resume all of her normal home medications. DISCHARGE INSTRUCTIONS: The patient will be discharged home in stable condition. She is to resume a normal diet. Activities include weightbearing as tolerated. She began physical therapy with home health. She will be discharged home with the medications noted above. Additionally, she is to resume all of her normal home medications. The patient is to call the office or return to the emergency room for any concerns including increased redness, swelling, drainage, fever or any concerns regarding the operation or site of incision. FOLLOWUP: The patient is to follow up in the office with Dr. Schroeder on 2016 Dictated By: FIONA KEARNS/SHANNAN Conf#: [id number] [facility]#: [id number] MTDD
== END 2016-12-24 17:15 | disposition home health service (06) | DRG 470 ==
LOC: REC 05:14 → MS1 11:47
PROVIDERS: ADMIT Orthopaedic Surgery; ATTEND Orthopaedic Surgery
PROC: 0SRB04Z Replacement of Left Hip Joint with Ceramic on Polyethylene Synthetic Substitute, Open Approach (ICD-10-PCS; principal; 2016-12-21 07:00)
DX: M16.12 Unilateral primary osteoarthritis, left hip (principal); E55.9 Vitamin D deficiency, unspecified; M85.80 Other specified disorders of bone density and structure, unspecified site; H40.9 Unspecified glaucoma; R33.9 Retention of urine, unspecified; Z96.641 Presence of right artificial hip joint
CPT/HCPCS: 72170; 73500; 73530; 80048; 81001; 81003; 85014; 85018; 85025; 86850; 86900; 86901; 86920; 87081; 87086; 88304; 88311; 97110; 97116; 97163; 97167; 97530; Z7610; A4310; C1776; C9290; J0131; J0171; J0330; J0690; J0697; J0735; J1100; J1885; J2250; J2274; J2405; J2710; J3010; J3370; J3420; J7050; J7120

== ENCOUNTER → 2016-12-29 | Outpatient (CLI) | payer MEDICARE, BC ==
[~2016-12-29] MED LIST changes: +ASPI325T32 PO; +AZOP1OP10 BOTH EYES; -BUPIVACAINE LIPOSOME/PF 266 MG/20 ML VIAL INFIL SCH; +CALC400T6 PO; -CEFAZOLIN 2GM/50 ML (PMX) 50 ML X1 BEFORE INCISION IVPB ONE; -CELECOXIB 400 MG PO X1 DOSE PO ONE; +CEPH-443 PO; +CHOL100012 PO; +CYAN250013 PO; +ESTR0.753 PO; -EXPAREL NOTE (BUPIVICAINE LIPOSOMAL) XX SCH; +HYDR-906 PO; -LACTATED RINGER'S 1,000 ML IV SCH; +MULT-761 PO; -ON CALL TO OR IV ONE; +PANT40TA4 PO; -SOD CHLORIDE 0.9% IV ONE; -SOD CHLORIDE 0.9% IVPB SCH; +TML25OP5 BOTH EYES; +TRAM50TA2 PO; -TRANEXAMIC ACID IV ONE; -TRANEXAMIC ACID IVPB SCH; +VIT1CAPS42 PO; +VIT500LI PO; -oxyCODONE (CR) 10 MG TAB [oxyCONTIN] X1 DOSE PO ONE; -traMADOL 50 MG TAB X 1 DOSE PO ONE
== END | disposition home or self-care (01) ==
LOC: HKI 13:35
PROVIDERS: ATTEND Orthopaedic Surgery
DX: Z47.1 Aftercare following joint replacement surgery (principal); M16.12 Unilateral primary osteoarthritis, left hip; Z96.642 Presence of left artificial hip joint
CPT/HCPCS: G0463

== ENCOUNTER → 2017-01-01 | Outpatient (CLI) | payer MEDICARE, BC ==
--- NOTE | 2016-12-29 14:27 | RADRPT ---
PROCEDURE: XR pelvis/left hip. CLINICAL INDICATION: Hip pain TECHNIQUE: AP pelvis/lateral left hip view available for review. COMPARISON: 12/21/2016 FINDINGS: There are bilateral total hip replacements. There is normal mineralization, architecture and alignment. There is no evidence of loosening of th e prosthesis. No fractures, dislocation or osseous lesions are identified. The joints are unremark able. There are normal soft tissues. IMPRESSION: Bilateral total hip replacements. Otherwise unremarkable examination. RPTAT: HGDB .Butch Cook MD, Date Time Electronically viewed and signed by .Butch Cook MD, on 12/29/2016 14:27 .B/
--- NOTE | 2017-01-02 03:33 | HKNOTE ---
DATE OF SERVICE: 01/01/2017 INTERVAL HISTORY: The patient presents today for a followup evaluation on her left hip. She is now 10 days status post left anterior total hip arthroplasty. She was sent for a Doppler study by Dr. Adam a few days ago which was negative for any signs of DVT. Her swelling is improving although she does have some bilateral lower extremity edema. She denies any chest pain or shortness of breath. She denies any erythema or warmth. Denies fevers or chills. She presents today for a postoperative evaluation. PHYSICAL EXAMINATION: On examination today, she is alert and oriented x4, and in no acute distress. She is ambulating with a walker. Examination of the left hip demonstrates incision to be clean, dry, and well-healing. Prineo was in place. There is no erythema or warmth noted. She does have some 2+ pitting edema distally bilaterally, left worse than right. There is some blister formation over the dorsal aspect of her foot as well. Compartments are otherwise soft. She does have a faint 1+ palpable dorsalis pedis pulse bilaterally. IMAGING: X-rays from 12/29/2016 were reviewed by me and showed good anatomical location of the hip prosthesis with no fracture or dislocation identified. ASSESSMENT: 10 days status post left anterior total hip arthroplasty. PLAN: The Prineo was removed today in the office, and Steri-Strips were applied. She does have some 2+ pitting edema bilaterally, left worse than right. It appears as if she is retaining some fluid which could be systemic in nature. We spoke to Dr. Payan, the patient's primary care doctor, who recommended starting Lasix 20 mg once daily as well as K-Dur 10 mEq b.i.d. A prescription was given to the patient today, per her PMDs recommendation. She completed her Keflex prescription, and her erythema around the incision is improved dramatically. We had encouraged the patient to elevate the extremity as much as possible to help decrease the swelling. We will see her back in 7 days for repeat evaluation. She is to call the office if she has any concerns prior to then. The patient demonstrates understanding. Dictated By: FIONA WILCOX PA for JHONATAN KEARNS/SHANNAN Conf#: [id number] DID#: [id number] [facility]
== END | disposition home or self-care (01) ==
LOC: HKI 13:28
PROVIDERS: ATTEND Orthopaedic Surgery
DX: Z47.1 Aftercare following joint replacement surgery (principal); Z96.642 Presence of left artificial hip joint
CPT/HCPCS: 73502; G0463

== ENCOUNTER → 2017-01-08 | Outpatient (CLI) | payer MEDICARE, BC ==
--- NOTE | 2017-01-09 09:39 | RADRPT ---
PROCEDURE: XR pelvis/left hip. CLINICAL INDICATION: Hip pain TECHNIQUE: AP pelvis/AP and lateral left hip views available for review. COMPARISON: 12/29/2016 FINDINGS: There are bilateral total hip replacements. There is normal mineralization, architecture and alignment. There is no evidence of loosening of the prosthesis. No fractures, dislocation or osseous lesions are identified. The joints are unremarkabl e. There are normal soft tissues. There is arterial vascular calcification. IMPRESSION: Bilateral total hip replacements. Otherwise unremarkable examination. RPTAT: HGDB .Butch Cook MD, MD Date Time Electronically viewed and signed by .Butch Cook MD, MD on 01/09/2017 09:39 .B/
== END | disposition home or self-care (01) ==
LOC: HKI 15:49
PROVIDERS: ATTEND Orthopaedic Surgery
DX: Z47.1 Aftercare following joint replacement surgery (principal); M16.12 Unilateral primary osteoarthritis, left hip; Z96.642 Presence of left artificial hip joint
CPT/HCPCS: 73502; G0463

== ENCOUNTER → 2017-02-02 | Outpatient (CLI) | payer MEDICARE, BC ==
--- NOTE | 2017-02-02 17:09 | RADRPT ---
PROCEDURE: XR pelvis/left hip. CLINICAL INDICATION: Hip pain TECHNIQUE: AP pelvis/lateral left hip view available for review. COMPARISON: 01/09/2017 FINDINGS: There are bilateral total hip replacements. There is no change in the heterotrophic bone formation l ateral to the right hip replacement. There is normal mineralization, architecture and alignment. There is no evidence of loosening of the prosthesis. No fractures, dislocation or osseous lesions are identified. The joints are unremarkabl e. There is a lumbar degenerative disk disease. There are normal soft tissues. There is arterial va scular calcification. IMPRESSION: Bilateral total hip replacements. Otherwise unremarkable examination. RPTAT: HGDB .Butch Cook MD, MD Date Time Electronically viewed and signed by .Butch Cook MD, on 02/02/2017 17:09 .B/
== END | disposition home or self-care (01) ==
LOC: HKI 15:15
PROVIDERS: ATTEND Orthopaedic Surgery
DX: Z47.1 Aftercare following joint replacement surgery (principal); Z96.642 Presence of left artificial hip joint
CPT/HCPCS: 73502

== ENCOUNTER → 2017-03-23 | Outpatient (CLI) | payer MEDICARE, BC ==
--- NOTE | 2017-03-24 18:45 | RADRPT ---
PROCEDURE: XR Left Hip and pelvis. CLINICAL INDICATION: Left hip pain. Pelvic pain. Postop. TECHNIQUE: Three views. Frontal pelvis. Frontal and lateral left hip. COMPARISON: 02/02/2017. FINDINGS: There are bilateral total hip arthroplasties which appears satisfactory. There is no fracture, disl ocation, or loosening. Vascular calcifications are present consistent with atherosclerosis. There are degenerative changes of the lower lumbar spine. The sacroiliac joints are grossly normal. There is no lytic or blastic lesion. IMPRESSION: 1. Satisfactory postoperative appearance of both hips. 2. Atherosclerosis. RPTAT: QQ .Ramone Montana MD, MD Date Time Electronically viewed and signed by .Ramone Montana MD, MD on 03/24/2017 18:44 .R/
== END | disposition home or self-care (01) ==
LOC: HKI 14:33
PROVIDERS: ATTEND Orthopaedic Surgery
DX: Z47.1 Aftercare following joint replacement surgery (principal); Z96.643 Presence of artificial hip joint, bilateral
CPT/HCPCS: 73502

== ENCOUNTER → 2017-07-16 | Outpatient (CLI) | payer MEDICARE, BC ==
--- NOTE | 2017-07-16 17:02 | RADRPT ---
PROCEDURE: XR Left hip and pelvis. CLINICAL INDICATION: Left hip pain and pelvic pain. TECHNIQUE: 3 views. Frontal pelvis. Frontal and lateral left hip. COMPARISON: 02/02/2017. FINDINGS: There are bilateral total hip arthroplasties. These appears satisfactory with no fracture, dislocat ion, or loosening. The upper pelvis is not included on the images. Vascular calcifications are present consistent with atherosclerosis. There is no lytic or blastic lesion. IMPRESSION: 1. Satisfactory postoperative appearance of both hips. 2. Atherosclerosis. RPTAT: QQ .Ramone Mnotana MD, MD Date Time Electronically viewed and signed by .Ramone Montana MD, MD on 07/16/2017 17:02 .R/
== END | disposition home or self-care (01) ==
LOC: HKI 13:35
PROVIDERS: ATTEND Orthopaedic Surgery
DX: Z47.89 Encounter for other orthopedic aftercare (principal); D48.1 Neoplasm of uncertain behavior of connective and other soft tissue; Z96.643 Presence of artificial hip joint, bilateral
CPT/HCPCS: 73502; G0463